=== PATIENT | female | born 1995 | race Caucasian/White ===

== ENCOUNTER 2020-06-22 18:26 | Emergency (ER) | payer OTHER ==
[~2020-06-22] VITALS: Ht 162.6 cm; Wt 60.8 kg
[2020-06-22 19:55] VITALS: BP 132/86
== END 2020-06-22 19:55 | disposition home or self-care (01) ==
LOC: ED 18:26
DX: S61.412A Laceration without foreign body of left hand, initial encounter (principal); W22.8XXA Striking against or struck by other objects, initial encounter; Y93.89 Activity, other specified; Y92.89 Other specified places as the place of occurrence of the external cause; Y99.8 Other external cause status
CPT/HCPCS: 90715